=== PATIENT | female | born 1995 | race Caucasian/White ===

== ENCOUNTER 2020-04-10 19:04 | Emergency (ER) | payer OTHER ==
[~2020-04-10] VITALS: Ht 162.6 cm; Wt 110.0 kg
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
[2020-04-10] MEDS ORDERED: IV RINGERS SOLUTION,LACTATED 1,000 ML IV SCH (19:12)
[2020-04-10] MEDS ORDERED: ACETAMINOPHEN 500 MG TABLET PO ONE (19:15)
[2020-04-10 20:45] LABS: BILIRUBIN,URINE NEG (NEG); CLARITY,URINE HAZY; COLOR,URINE YELLOW; GLUCOSE,URINE NEG (NEG); NITRITE,URINE NEG (NEG); UROBILINOGEN,URINE 0.2 mg/dL (0.2 mg/dL)
[2020-04-10 20:46] LABS: BACTERIA,URINE MOD /HPF (0-FEW); RBC,URINE 0 /HPF (0-2); SQUAMOUS EPITHELIAL CELL,UR MOD /LPF
[2020-04-10 20:55] LABS: BASO # 0.1 x10^3/uL (0.0-0.2); BASO % 1 % (0-3); EOS # 0.1 x10^3/uL (0.0-0.7); EOS % 1 % (0-3); HEMATOCRIT 36.9 % (36.0-47.0); HEMOGLOBIN 12.1 g/dL (12.0-15.5); LYMPH # 2.3 x10^3/uL (1.0-4.8); LYMPH % 23 % (24-48); MEAN CORPUSCULAR HEMOGLOBIN 26 pg (25-35); MEAN CORPUSCULAR HGB CONC 33 g/dL (31-37); MEAN CORPUSCULAR VOLUME 78 fL (79-100); MONO # 0.7 x10^3/uL (0.0-1.1); MONO % 7 % (0-9); NEUT # 6.9 x10^3uL (1.8-7.7); NEUT % 69 % (31-73); PLATELET COUNT 178 x10^3/uL (140-400); RED BLOOD COUNT 4.71 x10^6/uL (3.50-5.40); RED CELL DISTRIBUTION WIDTH 14.3 % (11.5-14.5)
[2020-04-10 21:10] LABS: CALCIUM 9.7 mg/dL (8.5-10.1); CREATININE 0.7 mg/dL (0.6-1.0); GFR 103.7; POTASSIUM 3.8 mmol/L (3.5-5.1)
[2020-04-10 21:24] LABS: ALBUMIN 4.1 g/dL (3.4-5.0); DIRECT BILIRUBIN 0.2 mg/dL (0.0-0.2); MAGNESIUM 2.1 mg/dL (1.8-2.4); TOTAL BILIRUBIN 0.6 mg/dL (0.2-1.0); TOTAL PROTEIN 7.8 g/dL (6.4-8.2)
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
[2020-04-10 22:00] VITALS: BP 130/89
--- NOTE | 2020-04-10 23:04 | EKG ---
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
[2020-04-10] MEDS ORDERED: coreg (23:18)
[2020-04-10] MEDS ORDERED: prazosin (23:19)
[2020-04-10] MEDS ORDERED: zoloft (23:19)
[2020-04-10] MEDS ORDERED: ibuprofen (23:19)
[2020-04-10] MEDS ORDERED: strattera (23:19)
[2020-04-10] MEDS ORDERED: CYPROHEPTADINE (23:19)
== END 2020-04-10 22:15 | disposition home or self-care (01) ==
LOC: ER 19:04
DX: S13.4XXA Sprain of ligaments of cervical spine, initial encounter (principal); S00.03XA Contusion of scalp, initial encounter; Z91.5 Personal history of self-harm; F41.9 Anxiety disorder, unspecified; F31.9 Bipolar disorder, unspecified; Y08.89XA Assault by other specified means, initial encounter; Y93.89 Activity, other specified; Y92.89 Other specified places as the place of occurrence of the external cause; Y99.8 Other external cause status
CPT/HCPCS: 36415; 70450; 71046; 72125; 74019; 80048; 80076; 81001; 81025; 82550; 83690; 83735; 84443; 84484; 85025; 85610; 85730; 87086; 93005; 96360; 99285; J7120